=== PATIENT | male | born 1935 | race Caucasian/White ===

== ENCOUNTER 2022-09-30 08:58 | Outpatient (CLI) | payer MEDICARE, BC, SELFPAY | END 2022-09-30 08:59 | disposition home or self-care (01) | LOC: NFLDREF 10-03 11:16 | PROVIDERS: PCP Family Medicine; Referring Provider Family Medicine; Visit Provider Family Medicine | DX: R10.9 Unspecified abdominal pain (principal); N20.0 Calculus of kidney; R31.9 Hematuria, unspecified | CPT/HCPCS: 74176; 81015 ==

== ENCOUNTER 2022-10-28 09:51 | Outpatient (CLI) | payer MEDICARE, BC, SELFPAY | END 2022-10-28 09:52 | disposition home or self-care (01) | PROVIDERS: PCP Family Medicine; Visit Provider Family Medicine | DX: I10 Essential (primary) hypertension (principal); R53.83 Other fatigue; R26.81 Unsteadiness on feet; R06.09 Other forms of dyspnea | CPT/HCPCS: 80048; 83880; 84443; 85025; 85651 ==

== ENCOUNTER 2022-11-18 14:12 | Outpatient (CLI) | payer MEDICARE, BC, SELFPAY ==
--- NOTE | 2022-11-18 14:30 | CRLHL7_ITS ---
For Patients: As a result of the Century Cures Act, medical imaging exams and procedure reports are released immediately into your electronic medical record. You may view this report before your referring provider. If you have questions, please contact your health care provider. Indication: Balance issues. Technique: Multiplanar, multisequence MRI of the brain was performed without intravenous contrast. Comparison: None relevant available. Findings: Zofn-sg-bevclmyk thinning of the corpus callosum. The pituitary gland and clivus appear intact. Mild to moderate degenerative change visualized upper cervical spine. There is no restricted diffusion. No intracranial hemorrhage. The ventricles are proportionate to the cerebral sulci. The 4th ventricle appears midline. The basal cisterns appear patent. No abnormal extra-axial fluid collection identified. Mild parenchymal volume loss. Scattered T2 FLAIR hyperintense foci within the subcortical and periventricular white matter, favored to represent chronic ischemic microvascular disease. There is an approximate 7 mm extra-axial lesion along the right frontal parietal convexity near the vertex. No significant mass effect or edema. Major intracranial vascular flow voids appear grossly intact. Bilateral pseudophakia. Impression: 1. No acute/subacute infarct. 2. Mild chronic ischemic microvascular disease. 3. 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 No mass effect or edema. Dictated by Artemio Helton MD @ 11/18/2022 3:37:30 PM (Electronically Signed)
== END 2022-11-18 14:13 | disposition home or self-care (01) ==
LOC: MRI 14:12
PROVIDERS: PCP Family Medicine; Visit Provider Family Medicine
DX: R26.81 Unsteadiness on feet (principal); I67.82 Cerebral ischemia; D32.0 Benign neoplasm of cerebral meninges
CPT/HCPCS: 70551

== ENCOUNTER 2023-05-26 08:26 | Outpatient (CLI) | payer MEDICARE, BC, SELFPAY | END 2023-05-26 08:27 | disposition home or self-care (01) | PROVIDERS: PCP Family Medicine; Visit Provider Family Medicine | DX: Z00.00 Encounter for general adult medical examination without abnormal findings (principal); I10 Essential (primary) hypertension; Z13.6 Encounter for screening for cardiovascular disorders | CPT/HCPCS: 80048; 80061; 85025 ==

== ENCOUNTER 2024-06-28 15:56 | Outpatient (CLI) | payer MEDICARE, BC, SELFPAY ==
--- OUTSIDE RECORDS SUMMARY | 2024-06-28 16:09 | XMS_ITS | Clinical Summary ---
Author Organization [facility] Address [place], [place] [address] Care Team Providers Care Sales Engineer Account Manager Name Role Phone Lee Yancey MD Primary Care Provider + Allergies Active Allergy Reactions Criticality Noted Date Comments Atenolol *Unknown 06/21/2014 Lorazepam *Unknown 06/21/2014 Buspirone Hcl *Unknown 06/21/2014 Venlafaxine Analogues *Unknown 06/21/2014 Medications Medication Sig Dispensed Refills Start Date End Date Status BiPapIndications:Obs tructive sleep apnea Auto BIPAP machine for home use at pressure: I 15 E 12 4PS , Heated humidifier x 1, Humidifier chamber x 1, Full face mask with cushion x 1, Heated tubing x 1, Headgear x 1, Filters: Disposable x 1pk & Reusable x 1pk, Length of Need: 99 months, Frequency of use: Daily 1 Device 10/08/2016 Active medical supply, miscellaneous ([employer])Indication s:Cellulitis, unspecified cellulitis site For personal use. Length: Knee Strength: 20-30 mmHg Circumference in cm: For calf: Calf 41cm, Ankle to calf length 44. 1 Packet 05/16/2019 Active lisinopril-hydrochlo rothiazide, 20-25 mg, (PRINZIDE, ZESTORETIC) 20-25 mg per tablet Take 1 tablet by mouth once daily. Active FLUoxetine (PROZAC) 20 mg capsule Take 20 mg by mouth once daily. 02/14/2024 Active mocuidap-rvwsqovas-g ydrocortisone (CORTISPORIN OTIC) otic suspension Place 4 Drops into both ears every 8 hours. 05/26/2023 Active tamsulosin (FLOMAX) 0.4 mg capsule Take 0.4 mg by mouth once daily after a meal. 03/18/2024 Active Active Problems Problem Noted Date Diagnosed Date Sensorineural hearing loss, bilateral 02/26/2023 Syncope 09/05/2020 Pneumonia due to COVID-19 virus 09/04/2020 Paroxysmal atrial fibrillation 09/04/2020 Acute Bradycardia 09/04/2020 Acute kidney injury 09/04/2020 Hypertension 09/04/2020 Ascending aorta dilatation 01/15/2018 Actinic keratosis 08/24/2017 Overview (09/04/2020): Overview: Left ear Prostate nodule 08/23/2017 Overview (09/04/2020): Overview: He saw Dr. Ram, urologist on 05/25/2017. 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5 06/11/2017 Venous stasis dermatitis 06/11/2017 Impaired fasting glucose 05/21/2017 Edema of foot 12/25/2016 Gastroesophageal reflux disease 11/11/2016 Adenomatous polyp of colon 11/11/2016 Hemorrhoids 11/11/2016 Iris nevus 11/11/2016 Lactose intolerance 11/11/2016 Osteoarthritis 11/11/2016 INDIRA, 12/26/2009, AHI 41.6 10/08/2016 Age-related cataract 11/03/2012 Adjustment disorder with anxiety 06/11/2010 Personal history of colonic polyps Hypokalemia Weakness Resolved Problems Problem Noted Date Diagnosed Date Resolved Date Chronic anticoagulation 09/04/2020 02/0 03/2021 Encounters Date Type Department Care Team Description 04/29/2024 12:30 PM CDT Office Visit [facility] [address] [place] [address] Jessica Wilson AuD Hearing Aid (GARG check) 04/29/2024 Travel 04/25/2024 Telephone [facility] [address] [facility] [address] [place] [address] Ursula Chung MD Results (TTE results) 04/22/2024 10:00 AM CDT Ancillary Procedure [facility] [address] [place] [address] 04/22/2024 Travel 04/11/2024 Telephone [facility] [address] [place] [address] Ursula Chung MD Results (Zio) from Last 3 Months Immunizations Name Administration Dates Next Due Tdap 03/21/2024,04/11/2019 Family History Medical History Relation Name Comments Alzheimer's disease Father Relation Name Status Comments Father Social History Tobacco Use Types Packs/Day Years Used Date Smoking Tobacco: Never Smokeless Tobacco: Never Tobacco Cessation:Counseling Given: Yes Alcohol Use Standard Drinks/Week Comments Yes 0 (1 standard drink = 0.6 oz pur e alcohol) very little Social Connections Answer Date Recorded Frequency of Communication with Friends and Fami ly Not on file 03/24/2024 Sex and Gender Information Value Date Recorded Sex Assigned at Not on file Gender Identity Not on file Sexual Orientation Not on file Obstetrics History Last Filed Vital Signs Vital Sign Reading Time Taken Comments Blood Pressure 105/68 03/24/2024 9:17 AM CDT Pulse 61 03/24/2024 9:17 AM CDT Temperature 36.8 C (98.3 F) 03/21/2024 3:20 PM CDT Respiratory Rate 20 03/21/2024 3:20 PM CDT Oxygen Saturation 97% 03/24/2024 9:17 AM CDT Inhaled Oxygen Concentration - - Weight 112.5 kg (248 lb) 03/24/2024 9:17 AM CDT Height 177.8 cm (5' 10) 03/24/2024 9:17 AM CDT Body Mass Index 35.58 03/24/2024 9:17 AM CDT Plan of Treatment Health Maintenance Due Date Last Done Comments Pneumococcal series for age 65+ (1 of 2 - PCV) 12/31/1943 Depression screening for age 12+ 1949 Zoster (shingles) series for age 50+ (1 of 2) 12/31/1987 Medicare Wellness for age 65+ 2002 RSV vaccine for adults or pr egnancy (1 - 1-dose 75+ series) 2012 COVID-19 vaccine series ( season) 2024 07/11/2021, 10/20/2020, 09/29/2020 Influenza for age 65+ 03/27/2024 BMI (ht and wt on same day) for age 18+ 03/24/2025 03/24/2024, 10/08/2016, 09/05/2015 Tetanus booster 03/21/2034 03/21/2024, 04/11/2019 Tdap Completed 03/21/2024, 04/11/2019 Procedures Procedure Name Priority Date/Time Associated Diagnosis Comments ECHO TTE COMPLETE WO CONTRAST Routine 04/22/2024 10:27 AM CDT Acute Bradycardia from Last 3 Months Results * ECHO TTE COMPLETE WO CONTRAST (04/22/2024 10:27 AM CDT) AORTIC VALVE MEAN PG 5 mmHg LVEDD 5.6 cm EJECTION FRACTION 60 - 65% Anatomical Region Laterality Modality Ultrasound 04/22/2024 9:49 AM CDT Narrative 04/22/2024 4:11 PM CDT ECHOCARDIOGRAM KENYATTA AUSTIN : 1935 88 years Study Date: 04/22/2024 9:49:17 AM Gender: M BP: 105/68 mmHg Height: 177.80 cm BSA: 2.29 m Weight: 112.49 kg Tech: TRACEY Referring MD: URSULA CHUNG Site: [facility] [place] Reading Location: MOBILE - OP Patient Location: Procedure: 2D, Color Doppler and Spectral Doppler. Indication for study: Acute Bradycardia Cardiac Rhythm: Sinus bradycardia and with premature ventricular contractions.Study quality: Excellent. Final Impressions: 1. Normal LV size, mildly increased wall thickness, normal global systolic function with an estimated EF of 60 - 65%. 2. Severely enlarged left atrium. 3. The aortic valve is trileaflet and sclerotic, no stenosis and trivial regurgitation. 4. The ascending aorta is dilated with a maximal diameter of 4.4 cm. Chamber Sizes and Function Normal left ventricular size, mildly increased wall thickness, normal global systolic function with an estimated EF of 60 - 65%. Left atrial size is severely enlarged. Right ventricular cavity size is normal, global systolic RV function is normal. RV wall thickness is normal. The right atrium is normal. The pulmonary artery is of normal size and origin. The sinus of Valsalva is normal sized. The ascending aorta is dilated. Valves, RV Pressures and Diastolic Function The aortic valve is trileaflet and sclerotic, no stenosis and trivial regurgitation. The mitral valve is normal in structure, trace mitral regurgitation. Spectral Doppler shows Grade 1 pattern of LV diastolic filling. The tricuspid valve is normal in structure. Tricuspid regurgitation is regurgitation is not evident. The pulmonic valve is normal. Trace pulmonary regurgitation. Masses, Effusion, Shunts There is no pericardial effusion. The inferior vena cava is normal sized, respiratory size variation greater than 50%. No left to right shunting was detected by limited color flow Doppler interrogation of the interatrial septum. MEASUREMENTS AND CALCULATIONS 2-D Measurements and LV Function: LVID (d) 5.6 cm LV FS% (2D) 43 % LVID (s) 3.2 cm LVOT diameter 2.5 cm IVS (d) 1.1 cm HR 55 bpm LVPW (d) 1.1 cm LA Vol index 49 ml/m2 Ao Sinus 3.5 cm Asc Ao 4.4 cm Diastology: Mitral Tissue Doppler E Peak 0.5 m/s e', Septum 0.05 m/s A Peak 0.6 m/s e', Lateral 0.06 m/s E/A 0.8 E/e' Average 8.66 DT 240 msec Aortic Valve: Vmax 1.6 m/s JOANA (V) 4.15 cm VTI 0.39 m JOANA (I) 4.04 cm LVOT V max 1.3 m/s Max PG 10 mmHg LVOT VTI 0.32 m Mean PG 5 mmHg SV 157 ml Dim Index 0.82 SV index 69 ml/m CO 8.6 l/min CI 3.8 l/min/m Mitral Valve: MVA 3.2 cm MV P 1/2 70 msec Tricuspid Valve and estimated PA pressures: TAPSE 2.7 cm . This study was interpreted by an [facility] accredited facility. Final Procedure Note Shayne Alvarez MD - 04/22/2024 ECHOCARDIOGRAM KENYATTA AUSTIN : 1935 88 years Study Date: 04/22/2024 9:49:17 AM Gender: M BP: 105/68 mmHg Height: 177.80 cm BSA: 2.29 m Weight: 112.49 kg Tech: TRACEY Referring MD: URSULA GABRIEL Site: [facility] Reading Location: MOBILE - OP Patient Location: Procedure: 2D, Color Doppler and Spectral Doppler. Indication for study: Acute Bradycardia Cardiac Rhythm: Sinus bradycardia and with premature ventricularcontractions.Study quality: Excellent. Final Impressions: 1. Normal LV size, mildly increased wall thickness, normal globalsystolic function with an estimated EF of 60 - 65%. 2. Severely enlarged left atrium. 3. The aortic valve is trileaflet and sclerotic, no stenosis and trivialregurgitation. 4. The ascending aorta is dilated with a maximal diameter of 4.4 cm. Chamber Sizes and Function Normal left ventricular size, mildly increased wall thickness, normalglobal systolic function with an estimated EF of 60 - 65%. Left atrialsize is severely enlarged. Right ventricular cavity size is normal, globalsystolic RV function is normal. RV wall thickness is normal. The rightatrium is normal. The pulmonary artery is of normal size and origin. Thesinus of Valsalva is normal sized. The ascending aorta is dilated. Valves, RV Pressures and Diastolic Function The aortic valve is trileaflet and sclerotic, no stenosis and trivialregurgitation. The mitral valve is normal in structure, trace mitralregurgitation. Spectral Doppler shows Grade 1 pattern of LV diastolicfilling. The tricuspid valve is normal in structure. Tricuspidregurgitation is regurgitation is not evident. The pulmonic valve isnormal. Trace pulmonary regurgitation. Masses, Effusion, Shunts There is no pericardial effusion. The inferior vena cava is normal sized,respiratory size variation greater than 50%. No left to right shunting wasdetected by limited color flow Doppler interrogation of the interatrialseptum. MEASUREMENTS AND CALCULATIONS 2-D Measurements and LV Function: LVID (d) 5.6 cm LV FS% (2D) 43 % LVID (s) 3.2 cm LVOT diameter 2.5 cm IVS (d) 1.1 cm HR 55 bpm LVPW (d) 1.1 cm LA Vol index 49 ml/m2 Ao Sinus 3.5 cm Asc Ao 4.4 cm Diastology: Mitral Tissue Doppler E Peak 0.5 m/s e', Septum 0.05 m/s A Peak 0.6 m/s e', Lateral 0.06 m/s E/A 0.8 E/e' Average 8.66 DT 240 msec Aortic Valve: Vmax 1.6 m/s JOANA (V) 4.15 cm VTI 0.39 m JOANA (I) 4.04 cm LVOT V max 1.3 m/s Max PG 10 mmHg LVOT VTI 0.32 m Mean PG 5 mmHg SV 157 ml Dim Index 0.82 SV index 69 ml/m CO 8.6 l/min CI 3.8 l/min/m Mitral Valve: MVA 3.2 cm MV P 1/2 70 msec Tricuspid Valve and estimated PA pressures: TAPSE 2.7 cm . This study was interpreted by an [facility] accredited facility. Final Ursula Chung MD ECH O ORD from Last 3 Months Advance Directives Documents on File Type Date Recorded Patient Cook [place] Expl anation Healthcare Directive 01/29/2021 021 * DNR (Latest Code Status on File) Date Activated Date Inactivated Comments 09/04/2020 8:05 PM 09/07/2020 4:16 PM No intubation if covid worsens and no CPR if cardiac arrest Question Answer Comments Code Status Discussion: Discussed * Full Code Date Activated Date Inactivated Comments 09/04/2020 11:03 AM 09/04/2020 7:10 PM Question Answer Comments Code Status Discussion: Discussed * Full Code Date Activated Date Inactivated Comments 06/27/2014 9:21 AM 06/27/2014 1:34 PM Care Teams Sales Engineer Account Manager Relationship Specialty Start Date End Date Lee Yancey MD [address] [place] [address] PCP - General Family Practice 09/01/20
== END 2024-06-28 15:57 | disposition home or self-care (01) ==
PROVIDERS: PCP Family Medicine; Visit Provider Family Medicine
DX: E55.9 Vitamin D deficiency, unspecified (principal); I10 Essential (primary) hypertension; R26.81 Unsteadiness on feet
CPT/HCPCS: 80048; 82306; 83735; 84443; 85025

== ENCOUNTER 2024-11-29 09:42 | Outpatient (CLI) | payer MEDICARE, BC, SELFPAY | END 2024-11-29 09:43 | disposition home or self-care (01) | PROVIDERS: PCP Family Medicine; Visit Provider Family Medicine | DX: I10 Essential (primary) hypertension (principal); E55.9 Vitamin D deficiency, unspecified; R53.83 Other fatigue | CPT/HCPCS: 80048; 80061; 82306; 85025 ==

== ENCOUNTER 2025-06-01 09:38 | Outpatient (CLI) | payer MEDICARE, BC, SELFPAY | END 2025-06-01 09:39 | disposition home or self-care (01) | PROVIDERS: PCP Family Medicine; Visit Provider Family Medicine | DX: I10 Essential (primary) hypertension (principal) | CPT/HCPCS: 80048; 80061; 85025 ==